=== PATIENT | female | born 1995 | race Caucasian/White ===

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

== ENCOUNTER 2018-03-31 15:26 | Emergency (ER) | payer BC ==
[2018-03-31 15:56] VITALS: BP 106/66
[2018-03-31] MEDS ORDERED: Ibuprofen TAB* 400 MG PO ONE (16:10)
--- NOTE | 2018-03-31 16:28 | UC ---
Abdominal Pain Female HPI - HPI Summary HPI Summary: 22-year-old female with a history of endometriosis presents with left pelvic discomfort that began last night. She states that her endometriosis is controlled with Mirena IUD. The discomfort is felt into the low back and also in the vaginal area but is not associated with any urinary difficulty, dysuria, frequency or hematuria. She has not had any vaginal discharge and is not sexually active for the last 2 years. She denies any GI upset, diarrhea or abdominal pain. That hurt somewhat worse with movement. She does have family history of endometriosis as well. - History of Current Complaint Chief Complaint: UCAbdominalPain Stated Complaint: HIP PAIN Time Seen by Provider: 03/31/18 16:00 Hx Obtained From: Patient Hx Last Menstrual Period: August 2017 IUD Pain Intensity: 6 Allergies/Adverse Reactions: Allergies Allergy/AdvReac Type Severity Reaction Status Date / Time Sulfa (Sulfonamide Allergy Unknown Verified 03/31/18 15:56 Antibiotics) Reaction Details PMH/Surg Hx/FS Hx/Imm Hx - Additional Past Medical History Additional PMH: Endometriosis - Surgical History Surgical History: Yes Surgery Procedure, Year, and Place: heel cord release - 2005. Pelvic lap - Family History Known Family History: Positive: Other - endometriosis Negative: Cardiac Disease - Social History Alcohol Use: Rare Substance Use Type: Marijuana Smoking Status (MU): Never Smoked Tobacco Review of Systems Constitutional: Negative Respiratory: Negative Cardiovascular: Negative Gastrointestinal: Other - L sided low abd/pelvic discomfort Genitourinary: Other - vaginal area pain without discharge All Other Systems Reviewed And Are Negative: Yes Physical Exam Triage Information Reviewed: Yes Appearance: Well-Appearing, No Pain Distress, Well-Nourished Vital Signs: Initial Vital Signs Temp 99.5 F 03/31/18 15:53 Pulse 77 03/31/18 15:53 Resp 18 03/31/18 15:53 BP 106/66 03/31/18 15:53 Pulse Ox 100 03/31/18 15:53 Vital Signs Reviewed: Yes Eye Exam: Normal ENT: Positive: Normal ENT inspection Neck: Positive: Supple, Nontender Respiratory: Positive: Chest non-tender, Lungs clear Cardiovascular: Positive: RRR Abdomen Description: Positive: Nontender, No Organomegaly, Soft, Other: - LLQ is nontender. Negative: Distended, Guarding Musculoskeletal Exam: Normal Musculoskeletal: Positive: Other: - no CVA tenderness or muscular tenderness in back Neurological Exam: Normal Psychological Exam: Normal Skin Exam: Normal Diagnostics - Laboratory Diagnostic Studies Completed/Ordered: UA: 3+ protein, NEG blood. Otherwise neg. Uring Preg: NEG Abd Pain Female Course/Dx - Course Course Of Treatment: There is concern for possible ovarian cyst versus pain associated with endometriosis. Ultrasound left at 4:00 and is not available. I 've discussed the options with patient to include going to the emergency department or coming back tomorrow for ultrasound. She wishes to return tomorrow. Pelvic exam was deferred given that the patient is not sexually active. Urinalysis shows no blood. Given ibuprofen here. No peritoneal signs. Follow-up urgent care first thing in the morning as [facility] does not offer ultrasound. - Differential Dx/Diagnosis Differential Diagnosis: Constipation, Ovarian Cyst, Pelvic Inflammatory Disease , Renal Colic, Urinary Tract Infection Provider Diagnoses: Left-sided pelvic pain. Probable left ovarian cyst. History of endometriosis Discharge - Sign-Out/Discharge Documenting (check all that apply): Patient Departure All imaging exams completed and their final reports reviewed: No Studies - Discharge Plan Condition: Improved Disposition: HOME Prescriptions: Naproxen [Naproxen 500 mg tab] 500 mg PO BID PRN #12 tablet.dr LANDEROS Reason: Pain Patient Education Materials: Ovarian Cyst (ED) Referrals: [facility] [Provider Group] Additional Instructions: Return to urgent care earlier in the day as ultrasound stops at 4:00. If you' re not seen before 3:30 PM he may not be able to have ultrasound. Emergency department is open 24 7 and does offer the services. Return to the ER or urgent care with fever, increased pain, vomiting, worse, new symptoms or other concerns as discussed. - Billing Disposition and Condition Condition: IMPROVED Disposition: Home - Attestation Statements Document Initiated by Van: Adriana
== END 2018-03-31 16:43 | disposition home or self-care (01) ==
LOC: UCEAST 15:26
DX: R10.2 Pelvic and perineal pain (principal); N80.9 Endometriosis, unspecified; Z97.5 Presence of (intrauterine) contraceptive device; Z32.02 Encounter for pregnancy test, result negative; Z88.2 Allergy status to sulfonamides
CPT/HCPCS: 81003; 84702; 99212; A9270-GY; G0463

== ENCOUNTER 2018-04-14 08:22 | Emergency (ER) | payer BC ==
[2018-04-14 08:33] VITALS: BP 102/61
--- NOTE | 2018-04-14 09:10 | UC ---
Abdominal Pain Female HPI - HPI Summary HPI Summary: SEVERAL WEEKS OF LEFT LOWER ABDOMINAL PAIN AND SHARP VAGINAL DISCOMFORT. HAS H/ O ENDOMETRIOSIS AND HAS IUD TO HELP WITH SX. WAS SEEN HERE A COUPLE OF WEEKS AGO FOR THIS SAME COMPLAINT AND WAS ADVISED TO HAVE AN ULTRASOUND DONE TO CHECK PLACEMENT OF HER IUD. SHE DOES HAVE SOME SLIGHT VAGINAL DISCHARGE BUT STATES THIS MAY BE HER NORMAL PHYSIOLOGIC DISCHARGE. NO ODOR, IRRITATION OR URINARY SYMPTOMS. NO FEVER, NAUSEA/VOMITING. NO SEXUAL ACTIVITY IN OVER 2 YEARS. PT NOT CONCERNED ABOUT STD. - History of Current Complaint Chief Complaint: UCAbdominalPain Stated Complaint: ABDOMINAL COMPLAINT Time Seen by Provider: 04/14/18 08:45 Hx Obtained From: Patient Hx Last Menstrual Period: IUD in place Onset/Duration: Gradual Onset, Lasting Weeks, Still Present Timing: Constant Severity Initially: Moderate Severity Currently: Moderate Pain Intensity: 4 Pain Scale Used: 0-10 Numeric Location: Diffuse Radiates: No Character: Cramping, Sharp Aggravating Factor(s): Nothing Alleviating Factor(s): Nothing Associated Signs and Symptoms: Negative: Fever, Back Pain, Urinary Symptoms, Nausea, Vomiting Allergies/Adverse Reactions: Allergies Allergy/AdvReac Type Severity Reaction Status Date / Time Sulfa (Sulfonamide Allergy Unknown Verified 04/14/18 08:33 Antibiotics) Reaction Details PMH/Surg Hx/FS Hx/Imm Hx - Additional Past Medical History Additional PMH: ADHD, ENDOMETRIOSIS Neurological History: Seizures - Surgical History Surgical History: Yes Surgery Procedure, Year, and Place: heel cord release - 2005. Pelvic lap. endometriosis surgery - Family History Known Family History: Positive: Hypertension, Other - endometriosis Negative: Cardiac Disease - Social History Alcohol Use: Occasionally Substance Use Type: Marijuana Substance Use Comment - Amount & Last Used: ocassional Smoking Status (MU): Never Smoked Tobacco Review of Systems Constitutional: Negative Respiratory: Negative Cardiovascular: Negative Gastrointestinal: Abdominal Pain Genitourinary: Dysuria All Other Systems Reviewed And Are Negative: Yes Physical Exam Triage Information Reviewed: Yes Appearance: Well-Appearing, No Pain Distress, Well-Nourished Vital Signs: Initial Vital Signs Temp 98 F 04/14/18 08:27 Pulse 92 04/14/18 08:27 Resp 18 04/14/18 08:27 BP 102/61 04/14/18 08:27 Pulse Ox 100 04/14/18 08:27 Laboratory Tests 04/14/18 11:02 POC Urine Color Light yellow POC Urine Clarity Clear POC Urine pH 6.0 POC Ur Specif [place] <= 1.005 L POC Urine Protein Negative POC Ur Glucose (UA) Negative POC Urine Ketones Negative POC Urine Blood Negative POC Urine Nitrite Negative POC Urine Bilirubin Negative POC Urine Urobilinogen 0.2 POC U Leukocyte Esteras Negative Vital Signs Reviewed: Yes Eyes: Positive: Conjunctiva Clear ENT: Positive: Hearing grossly normal Neck: Positive: Supple Respiratory Exam: Normal Cardiovascular Exam: Normal Abdomen Description: Positive: Soft, CVA Tenderness (R), CVA Tenderness (L), Other: - DIFFUSELY TENDER BUT WORSE IN LOWER ABD. NO REBOUND OR RIGIDITY. Negative: Distended, Guarding Bowel Sounds: Positive: Present Musculoskeletal: Positive: No Edema Neurological: Positive: Alert Psychological: Positive: Age Appropriate Behavior Skin: Negative: rashes Diagnostics - Radiology PELVIC/TRANSVAG US Radiology Interpretation Completed By: Radiologist Summary of Radiographic Findings: 1. 3.2 CM CYSTIC LESION OF THE LEFT OVARY. THE DIFFERENTIAL INCLUDES A HEMORRHAGIC CYST VERSUS ENDOMETRIOMA. RECOMMEND CONSIDERATION OF FOLLOW-UP EVALUATION IN 6 WEEKS-12 WEEKS TO DOCUMENT RESOLUTION. 2. AN IUD IS NOTED CENTRALLY WITHIN THE ENDOMETRIAL CAVITY TOWARDS THE FUNDUS. Abd Pain Female Course/Dx - Differential Dx/Diagnosis Provider Diagnoses: HEMORRHAGIC OVARIAN CYST/PELVIC PAIN Discharge - Sign-Out/Discharge Documenting (check all that apply): Patient Departure All imaging exams completed and their final reports reviewed: Yes - Discharge Plan Condition: Stable Disposition: HOME Patient Education Materials: Ovarian Cyst (ED), Pelvic Pain in Women (ED) Forms: *School Release, *Work Release Referrals: No Primary Care Phys,[facility] [Primary Care Provider] - Additional Instructions: ULTRASOUND TODAY SHOWS: 1. 3.2 CM CYSTIC LESION OF THE LEFT OVARY. THE DIFFERENTIAL INCLUDES A HEMORRHAGIC CYST VERSUS ENDOMETRIOMA. RECOMMEND CONSIDERATION OF FOLLOW-UP EVALUATION IN 6 WEEKS-12 WEEKS TO DOCUMENT RESOLUTION. 2. AN IUD IS NOTED CENTRALLY WITHIN THE ENDOMETRIAL CAVITY TOWARDS THE FUNDUS. FOLLOW-UP WITH YOUR CABLE STRETCHER AND TESTER INDICATED ABOVE. GO TO THE ED WITHOUT FAIL IF YOU DEVELOP WORSENING PAIN, FEVER, NAUSEA OR ANY OTHER CONCERNING SYMPTOMS. - Billing Disposition and Condition Condition: STABLE Disposition: Home
--- NOTE | 2018-04-14 10:25 | RAD ---
HISTORY: PELVIC/LLQ PAIN. IUD PLACEMENT, history of endometriosis COMPARISONS: None TECHNIQUE: Multiple transverse and longitudinal ultrasound images were obtained of the pelvis using grayscale, color Doppler, and spectral Doppler imaging using the transabdominal and endovaginal transducers. FINDINGS: UTERUS: The uterus measures 8.1 x 3.3 x 3.9 cm. The uterus is normal in shape, size, contour, and echotexture. ENDOMETRIUM: The endometrial stripe is smooth. The endometrium measures 0.4 cm in thickness. An IUD is noted centrally within the endometrial cavity towards the fundus. CUL-DE-SAC: There is no free fluid within the cul-de-sac. RIGHT OVARY: The right ovary measures 2.7 x 1.9 x 1.4 cm. Normal arterial and venous waveforms are identifiable within the ovary on spectral Doppler imaging. LEFT OVARY: The left ovary measures 4 x 3.8 x 3.5 cm. There is a heterogeneously hyperechoic cystic lesion of the left ovary measuring 3.1 x 3.2 x 3.1 cm in size without internal vascularity. Normal arterial and venous waveforms are identifiable within the ovary on spectral Doppler imaging. BLADDER: The visualized bladder is unremarkable. OTHER: None IMPRESSION: 1. 3.2 CM CYSTIC LESION OF THE LEFT OVARY. THE DIFFERENTIAL INCLUDES A HEMORRHAGIC CYST VERSUS ENDOMETRIOMA. RECOMMEND CONSIDERATION OF FOLLOW-UP EVALUATION IN 6 WEEKS-12 WEEKS TO DOCUMENT RESOLUTION. 2. AN IUD IS NOTED CENTRALLY WITHIN THE ENDOMETRIAL CAVITY TOWARDS THE FUNDUS.
== END 2018-04-14 11:05 | disposition home or self-care (01) ==
LOC: UCEAST 08:22
DX: N83.202 Unspecified ovarian cyst, left side (principal); R10.2 Pelvic and perineal pain; Z97.5 Presence of (intrauterine) contraceptive device; Z88.2 Allergy status to sulfonamides
CPT/HCPCS: 76856; 81003; 99211; G0463

== ENCOUNTER 2018-06-18 00:31 | Emergency (ER) | payer BC ==
--- NOTE | 2018-06-18 01:48 | ED ---
Headache - HPI Summary HPI Summary: This patient is a 22 year old F presenting to [facility] with a chief complaint of severe WILEY with dizziness since 15:30 yesterday. The patient rates the pain 5/10 in severity. Patient reports nausea, blurry vision, productive cough, left sided CP, difficulty eating, and SOB. Patient denies fever or diarrhea. The patient has had sudden breathing difficulties over the past month and was given an inhaler. She states that her car has an exhaust problem and she is concerned about CO poisoning. PMHX asthma. Vitals in the room: HR 75 bpm BP 116/50 - History Of Current Complaint Chief Complaint: EDGeneral Stated Complaint: CO1 EXPOSURE Time Seen by Provider: 06/18/18 01:39 Hx Obtained From: Patient Hx Last Menstrual Period: IUD in place Onset/Duration: Sudden Onset, Started days ago Timing: Constant Character: Sharp Associated Signs And Symptoms: Dizziness, Nausea, Visual Changes - Allergies/Home Medications Allergies/Adverse Reactions: Allergies Allergy/AdvReac Type Severity Reaction Status Date / Time Sulfa (Sulfonamide Allergy Unknown Verified 06/18/18 00:40 Antibiotics) Reaction Details PMH/Surg Hx/FS Hx/Imm Hx Respiratory History: Reports: Hx Asthma Sensory History: Denies: Hx Deafness - Surgical History Surgery Procedure, Year, and Place: heel cord release - 2005. Pelvic lap. endometriosis surgery Infectious Disease History: No Infectious Disease History: Denies: Traveled Outside the [place] in Last 30 Days - Family History Known Family History: Positive: Hypertension, Other - endometriosis Negative: Cardiac Disease - Social History Alcohol Use: Occasionally Substance Use Type: Reports: Marijuana Substance Use Comment - Amount & Last Used: ocassional Smoking Status (MU): Never Smoked Tobacco Review of Systems Negative: Fever Positive: Blurred Vision Positive: Chest Pain Positive: Shortness Of Breath, Cough Positive: Nausea. Negative: Diarrhea Positive: Headache All Other Systems Reviewed And Are Negative: Yes Physical Exam - Summary Physical Exam Summary: Appearance: Well-appearing, Well-nourished, lying in bed comfortably Skin: Warm, dry, no obvious rash Eyes: sclera anicteric, no conjunctival pallor ENT: mucous membranes moist, pharynx appears normal Neck: Supple, nontender Respiratory: Clear to auscultation, no signs of respiratory distress Cardiovascular: Normal S1, S2. No murmurs. Normal distal pulses in tibial and radial bilaterally. Abdomen: Soft, nontender, normal active bowel sounds present Musculoskeletal: Normal, Strength/ROM Intact Neurological: A&Ox3, awake and alert, mentation is normal, speech is fluent and appropriate Psychiatric: affect is normal, does not appear anxious or depressed Triage Information Reviewed: Yes Vital Signs On Initial Exam: Initial Vitals Temp Pulse Resp BP Pulse Ox 98.5 F 84 20 118/75 100 06/18/18 00:35 06/18/18 00:35 06/18/18 00:35 06/18/18 00:35 06/18/18 00:35 Vital Signs Reviewed: Yes Diagnostics - Vital Signs Vital Signs Temp Pulse Resp BP Pulse Ox 06/18/18 00:35 98.5 F 84 20 118/75 100 - Laboratory Lab Statement: Any lab studies that have been ordered have been reviewed, and results considered in the medical decision making process. Headache Course/Dx - Course Course Of Treatment: This patient is a 22 year old F presenting to [facility] with a chief complaint of severe WILEY with dizziness since 15:30 yesterday. The patient rates the pain 5/10 in severity. Patient reports nausea, blurry vision, productive cough, left sided CP, difficulty eating, and SOB. Patient denies fever or diarrhea. In the ED course the patient was given Ondansetron. Patient will be discharged with prescription for Ondansetron and follow up from the [facility]. The patient is agreeable with this plan. - Diagnoses Differential Diagnosis/HQI/PQRI: Viral Syndrome Provider Diagnoses: Viral syndrome Discharge - Sign-Out/Discharge Documenting (check all that apply): Patient Departure - discharge - Discharge Plan Condition: Good Disposition: HOME Prescriptions: Ondansetron ODT TAB* [Zofran 4 MG Odt TAB*] 8 mg PO Q6H PRN #10 tab.odt PRN Reason: Nausea Patient Education Materials: Viral Syndrome (ED) Referrals: [facility] [Outside] - 1 Week (if not improving) - Billing Disposition and Condition Condition: GOOD Disposition: Home - Attestation Statements Document Initiated by Scribe: Yes Documenting Scribe: Dennys Sanders Provider For Whom Scribe is Documenting (Include Credential): Dionicio Overton MD Scribe Attestation: Dennys Dai, ediibed for Dionicio Overton MD on 06/18/18 at 0650. Scribjabari Documentation Reviewed: Yes Provider Attestation: The documentation as recorded by the scribe, Dennys Sanders accurately reflects the service I personally performed and the decisions made by me, Dionicio Overton MD Status of Van Document: Viewed
[2018-06-18] MEDS ORDERED: Ondansetron ODT TAB* 4 MG SL ONE (01:52)
[2018-06-18 02:29] VITALS: BP 125/74
== END 2018-06-18 02:15 | disposition home or self-care (01) ==
LOC: ED 00:31
DX: B34.9 Viral infection, unspecified (principal); R42 Dizziness and giddiness; R11.0 Nausea; Z88.2 Allergy status to sulfonamides; H53.8 Other visual disturbances; R06.02 Shortness of breath; R07.9 Chest pain, unspecified
CPT/HCPCS: 99282; A9270-GY

== ENCOUNTER 2019-03-03 09:41 | Emergency (ER) | payer BC ==
--- NOTE | 2019-03-03 10:51 | ED ---
GI/ HPI - HPI Summary HPI Summary: Patient is a 23 y/o F w/ Hx of UTI who presents to [facility] with complaints of right flank pain, lower abdominal pain, dysuria, and increased urgency of urination. She additionally notes that she had a low-grade fever yesterday. No vaginal bleeding or discharge is reported. Patient reports that she had a UTI about a month ago and states that present Sx are similar to those that she had during her UTI episode. Patient went to [facility] and was sent to [facility] after urine returned clean. Patient notes that she has an IUD in place. PMHx of endometriosis reported, for which she had surgery. Patient notes marijuana usage , occasional alcohol usage, patient is not a current tobacco smoker. FMHx of type 1 diabetes, grandfather, noted. On triage, pain is rated 4/10, nothing is noted to aggravate/alleviate Sx. Home medications and allergies are reviewed. - History of Current Complaint Chief Complaint: EDUrogenitalProblems Time Seen by Provider: 03/03/19 10:36 Stated Complaint: ABD PAIN PER PT Hx Obtained From: Patient Hx Last Menstrual Period: IUD in place Onset/Duration: Still Present Timing: Constant Current Severity: Moderate Pain Intensity: 4 Location of Pain: Flank - right, Other - lower abdomen Associated Signs and Symptoms: Positive: Fever, Dysuria, Flank Pain - right, Abdominal Pain - lower, Other: - increased urgency of urination, Additional Signs & Symptoms: Negative: Vaginal Bleeding, Vaginal Discharge Aggravating Factor(s): Nothing Alleviating Factor(s): Nothing - Allergy/Home Medications Allergies/Adverse Reactions: Allergies Allergy/AdvReac Type Severity Reaction Status Date / Time Sulfa (Sulfonamide AdvReac Unknown Verified 03/03/19 09:43 Antibiotics) Reaction Details PMH/Surg Hx/FS Hx/Imm Hx Respiratory History: Reports: Hx Asthma History: Reports: Other Problems/Disorders - endometriosis Sensory History: Denies: Hx Deafness - Surgical History Surgery Procedure, Year, and Place: heel cord release - 2005. Pelvic lap. endometriosis surgery Infectious Disease History: No Infectious Disease History: Denies: Traveled Outside the [place] in Last 30 Days - Family History Known Family History: Positive: Hypertension, Diabetes, Other - endometriosis Negative: Cardiac Disease - Social History Alcohol Use: Occasionally Substance Use Type: Reports: Marijuana Substance Use Comment - Amount & Last Used: ocassional Smoking Status (MU): Never Smoked Tobacco Review of Systems Positive: Fever Positive: Abdominal Pain - lower Genitourinary: Other - negative - vaginal bleeding Positive: dysuria, flank pain - right, urgency - increased urgency of urination . Negative: discharge - vaginal All Other Systems Reviewed And Are Negative: Yes Physical Exam - Summary Physical Exam Summary: VITAL SIGNS: Reviewed. GENERAL: Patient is a well-developed and nourished female who is lying comfortable in the stretcher. Patient is not in any acute respiratory distress. Right CVA tenderness is noted. HEAD AND FACE: Normocephalic and atraumatic. EYES: PERRLA, EOMI x 2, No injected conjunctiva. EARS: Hearing grossly intact. Ear canals and tympanic membranes are WNL. MOUTH: Oropharynx within normal limits. NECK: Supple, trachea is midline, no adenopathy, no JVD. CHEST: Symmetric, no tenderness at palpation. LUNGS: Clear to auscultation bilaterally. No wheezing or crackles. CVS: RRR, S1 and S2 present, no murmurs or gallops appreciated. ABDOMEN: Soft, non-tender. No signs of distention. Positive bowel sounds. No rebound, no guarding, and no masses palpated. No abdominal bruit or pulsations. EXTREMITIES: FROM in all major joints, no edema, no cyanosis or clubbing. NEURO: Alert and oriented x 3. No acute neurological deficits. Speech is normal. SKIN: Dry and warm. Triage Information Reviewed: Yes Vital Signs On Initial Exam: Initial Vitals Temp Pulse Resp BP Pulse Ox 98.1 F 88 16 133/67 95 03/03/19 09:42 03/03/19 09:42 03/03/19 09:42 03/03/19 09:42 03/03/19 09:42 Vital Signs Reviewed: Yes Diagnostics - Vital Signs Vital Signs Temp Pulse Resp BP Pulse Ox 03/03/19 09:42 98.1 F 88 16 133/67 95 - Laboratory Result Diagrams: 03/03/19 10:43 03/03/19 10:43 Lab Statement: Any lab studies that have been ordered have been reviewed, and results considered in the medical decision making process. - CT CT ABD/PEL CT Interpretation Completed By: Radiologist Summary of CT Findings: IMPRESSION: No evidence of obstructive uropathy. THIS REPORT WAS REVIEWED BY DR. MARTINEZ. GIORGIO Course/Dx - Course Assessment/Plan: Patient is a 23 y/o F w/ Hx of UTI who presents to [facility] with complaints of right flank pain, lower abdominal pain, dysuria, and increased urgency of urination. She additionally notes that she had a low-grade fever yesterday. No vaginal bleeding or discharge is reported. Patient reports that she had a UTI about a month ago and states that present Sx are similar to those that she had during her UTI episode. Patient went to [facility] and was sent to [facility] after urine returned clean. Patient notes that she has an IUD in place. PMHx of endometriosis reported, for which she had surgery. Blood work without any significant abnormality except for WBCs of 2.4. Urinalysis shows 1+ blood, 1+ red blood cells and positive for squamous epithelial cells. Abdominal pelvic CT impression: No acute pathology. Therefore, I did not find the etiology of urinary frequency and dysuria. We will send the urine for cultures. At this point I would give a prescription for Pyridium to treat the discomfort. The patient will follow-up with the primary care physician. She was recommended to return to the emergency department if the symptoms worsen. She understands and agrees. - Diagnoses Provider Diagnoses: Dysuria Discharge ED - Sign-Out/Discharge Documenting (check all that apply): Patient Departure - discharge Patient Received Moderate/Deep Sedation with Procedure: No - Discharge Plan Condition: Stable Disposition: HOME Prescriptions: Phenazopyridine TAB* [Pyridium 100 mg TAB*] 100 mg PO TID #9 tab Patient Education Materials: Dysuria (ED) Referrals: [facility] - [facility] [Primary Care Provider] - 3 Days Additional Instructions: PLEASE RETURN TO THE EMERGENCY DEPARTMENT FOR ANY NEW OR WORSENING SYMPTOMS. PLEASE FOLLOW UP WITH YOUR PRIMARY CARE PHYSICIAN WITHIN THREE DAYS. - Billing Disposition and Condition Condition: STABLE Disposition: Home - Attestation Statements Document Initiated by Van: Yes Documenting Scribe: DAGO JONES Provider For Whom Van is Documenting (Include Credential): FAUSTO MARTINEZ MD Scribe Attestation: DAGO Dai scribed for FAUSTO MARTINEZ MD on 03/04/19 at 0843. Scribe Documentation Reviewed: Yes Provider Attestation: The documentation as recorded by the DAGO tom accurately reflects the service I personally performed and the decisions made by me, FAUSTO MARTINEZ MD Status of Van Document: Viewed
[2019-03-03 10:57] LABS: ABS Lymphocytes 0.7 10^3/ul (1.0-4.8); ABS Monocytes 0.4 10^3/ul (0-0.8); ABS Neutrophils 1.3 10^3/ul (1.5-7.7); Hematocrit 41 % (35-47); Hemoglobin 14.1 g/dL (12.0-16.0); Lymphocyte % 27.1 %; Mean Corpuscular HGB Conc 35 g/dL (31-36); Mean Corpuscular Hemoglobin 31 pg (27-31); Mean Corpuscular Volume 90 fL (80-97); Mean Platelet Volume 7.3 fL (7.4-10.4); Nucleated Red Blood Cells % 0.1; Platelet Count 211 10^3/uL (150-450); Red Blood Count 4.52 10^6 /uL (3.70-4.87); Red Cell Distribution Width 13 % (10-15); White Blood Count 2.4 10^3/uL (3.5-10.8)
[2019-03-03 11:10] LABS: ALT 14 U/L (7-52); Albumin 4.5 g/dL (3.2-5.2); Albumin/Globulin Ratio 1.6 (1-3); Alkaline Phosphatase 73 U/L (34-104); Blood Urea Nitrogen 17 mg/dL (6-24); CO2 Carbon Dioxide 25 mmol/L (22-32); Calcium 9.2 mg/dL (8.6-10.3); Chloride 108 mmol/L (101-111); EGFR African American 132.2 (>60); EGFR Non-African American 109.2 (>60); Globulin 2.8 g/dL (2-4); Glucose 92 mg/dL (70-100); Sodium 138 mmol/L (135-145); Total Protein 7.3 g/dL (6.4-8.9)
[2019-03-03 11:24] LABS: Urine Appearance Clear; Urine Bacteria Absent (Absent); Urine Bilirubin Negative (Negative); Urine Blood 1+ (Negative); Urine Color Yellow; Urine Glucose Negative (Negative); Urine Ketones Negative (Negative); Urine Nitrite Negative (Negative); Urine Protein Negative (Negative); Urine Red Blood Cell 1+(3-5/hpf) (Absent); Urine Squamous Epithelial Cell Present (Absent); Urine Urobilinogen Negative (Negative); Urine White Blood Cell Trace(0-5/hpf) (Absent)
[2019-03-03 12:04] LABS: Anion Gap 5 mmol/L (2-11); Potassium 4.4 mmol/L (3.5-5.0)
[2019-03-03 12:05] LABS: HCG Pregnancy < 0.60 mIU/mL
[2019-03-03 12:11] LABS: AST 19 U/L (13-39)
[2019-03-03 13:21] VITALS: BP 112/68
== END 2019-03-03 13:16 | disposition home or self-care (01) ==
LOC: ED 09:41
DX: R30.0 Dysuria (principal); J45.909 Unspecified asthma, uncomplicated; Z79.899 Other long term (current) drug therapy; Z88.2 Allergy status to sulfonamides
CPT/HCPCS: 36415; 74176; 80053; 81003; 81015; 84702; 85025; 86140; 87086; 99282

== ENCOUNTER 2019-03-16 22:03 | Emergency (ER) | payer BC ==
[2019-03-16 22:16] VITALS: BP 119/70
== END 2019-03-16 23:18 | disposition left against medical advice (07) ==
LOC: ED 22:03
DX: Z53.21 Procedure and treatment not carried out due to patient leaving prior to being seen by health care provider (principal)
CPT/HCPCS: 99282

== ENCOUNTER 2019-03-17 17:05 | Emergency (ER) | payer BC ==
--- NOTE | 2019-03-17 17:28 | ED ---
Throat Pain/Nasal Congestion - HPI Summary HPI Summary: 23 year old F brought in by EMS to [facility] from [facility] accompanied by mother complains of sore throat since last week. Patient states she was seen at [facility] on Thursday03/13/19 where she had strep test done which was negative for strep and bloodwork done which was positive for mono. Patient was diagnosed with mono, and discharged with prescription for prednisone 10 mg and given lidocaine. Patient states she has been taking prednisone 10 mg since Thursday03/13/19, and has only taken one dose of prednisone today. Patient states she has not taken any antibiotics. Patient states she has additionally been taking Tylenol, last taken at 13:00 today 03/17/19, and Aleve for fever. Patient reports headache, left sided abdominal discomfort, and shortness of breath. She denies vomiting, urinary symptoms. The patient rates the pain 7/10 in severity. Symptoms aggravated by eating, drinking, swallowing. Symptoms alleviated by prednisone 10 mg, lidocaine, Tylenol, and Aleve. Mother states that patient came to the ED last night and left without being seen. Patient states she has not received the influenza vaccination yet. Patient states that 2 years ago, she had similar symptoms but tested negative for mono. LNMP was "couple weeks ago." Patient states she has an IUD. Vital signs while in room: HR 46 bpm, BP 134/87, O2 sat 99% Home Medications Medication Instructions Recorded Confirmed Type Methylphenidate HCl [Concerta] 1 tab PO DAILY 07/12/16 03/17/19 History Methylphenidate HCl [Ritalin] 1 tab PO DAILY 07/12/16 03/17/19 History predniSONE TAB* [Deltasone 10 MG 10 mg PO DAILY 03/17/19 03/17/19 History TAB*] - History of Current Complaint Chief Complaint: EDThroatPain Time Seen by Provider: 03/17/19 17:26 Hx Obtained From: Patient, Family/[employer] - mother, EMS Onset/Duration: Gradual Onset, Lasting Weeks - 1, Still Present Severity: Severe - 12/22 Associated Signs And Symptoms: Positive: Dysphagia Cough: None Related History: Other (Noted In Comments) - recent dx of mono - Allergies/Home Medications Allergies/Adverse Reactions: Allergies Allergy/AdvReac Type Severity Reaction Status Date / Time Sulfa (Sulfonamide AdvReac Unknown Verified 03/17/19 17:15 Antibiotics) Reaction Details Home Medications: Home Medications predniSONE TAB* [Deltasone 10 MG TAB*] 10 mg PO DAILY 03/17/19 [History Confirmed 03/17/19] PMH/Surg Hx/FS Hx/Imm Hx Previously Healthy: Yes Respiratory History: Reports: Hx Asthma History: Reports: Other Problems/Disorders - endometriosis Sensory History: Reports: Hx Contacts or Glasses Opthamlomology History: Reports: Hx Contacts or Glasses - Surgical History Surgical History: Yes Surgery Procedure, Year, and Place: heel cord release - 2005. Pelvic lap. endometriosis surgery Infectious Disease History: No Infectious Disease History: Denies: Traveled Outside the [place] in Last 30 Days - Family History Known Family History: Positive: Hypertension, Diabetes, Other - endometriosis Negative: Cardiac Disease - Social History Occupation: Student Lives: Dormitory/Roommates Alcohol Use: Occasionally Hx Substance Use: Yes Substance Use Type: Reports: Marijuana Substance Use Comment - Amount & Last Used: ocassional Hx Tobacco Use: No Smoking Status (MU): Never Smoked Tobacco Review of Systems Positive: Fever Positive: Sore Throat Cardiovascular: Negative Positive: Shortness Of Breath Positive: Other - left sided abdominal discomfort. Negative: Vomiting Positive: no symptoms reported Musculoskeletal: Negative Skin: Negative Positive: Headache Psychological: Normal All Other Systems Reviewed And Are Negative: Yes Physical Exam - Summary Physical Exam Summary: Appearance: Ill-appearing, severe pain distress due to throat pain, well- nourished, expectorating her secretions but able to swallow her own secretions, no "hot potato" voice Skin: Warm, color reflects adequate perfusion, dry, no rash Head: Normal Head/Face inspection, atraumatic Eyes: Conjunctiva clear ENT: Bilateral tonsils enlarged with right greater than left, exudate bilaterally right greater than left, no "kissing tonsils," uvula midline, right tonsil not swollen to uvula Neck: Supple, bilateral anterior cervical nodes, no JVD Respiratory: Lungs clear, normal breath sounds, no respiratory distress Cardio: RRR, No murmur, pulses normal, brisk capillary refill Abdomen: Soft, diffusely tender, no spleen tip palpable, no guarding, no rebound Bowel sounds: Present Musculoskeletal: Strength Intact/ROM intact, no calf tenderness, no edema. Psychological: Normal Neuro: Alert, muscle tone normal, no focal deficit Triage Information Reviewed: Yes Vital Signs On Initial Exam: Initial Vitals Temp Pulse Resp BP Pulse Ox 98.8 F 46 16 134/87 99 03/17/19 17:10 03/17/19 17:10 03/17/19 17:10 03/17/19 17:10 03/17/19 17:10 Vital Signs Reviewed: Yes Procedures - Sedation Patient Received Moderate/Deep Sedation with Procedure: No Diagnostics - Vital Signs Vital Signs Temp Pulse Resp BP Pulse Ox 03/17/19 17:10 98.8 F 46 16 134/87 99 - Laboratory Result Diagrams: 03/17/19 19:04 03/17/19 19:04 Lab Statement: Any lab studies that have been ordered have been reviewed, and results considered in the medical decision making process. Re-Evaluation - Re-Evaluation First Eval Re-Evaluation Time: 20:26 Change: Unchanged Comment: nurse states IV was placed and 30 mg Toradol given. patient complained of pain so IV was pulled per nurse. unable to re-establish IV access per nurse. patient states she will drink. will try to find liquid medicine for her dose of clindamycin tonight Second Eval Re-Evaluation Time: 21:25 Change: Improved Comment: sitting up. pain is 2/10. drinking. able to swallow. mother and patient are agreeable to discharge EENT Course/Dx - Course Course Of Treatment: 23 year old F brought in by EMS to [facility] from [facility] accompanied by mother complains of sore throat, headache, left-sided abdominal discomfort, and shortness of breath since last week. Patient was dx mono on Thursday03/13/19 at [facility]. Upon exam, the patient is in severe pain distress due to throat pain. She is expectorating her secretions but able to swallow her own secretions. No "hot potato" voice. Bilateral anterior cervical nodes. No rash. Bilateral tonsils enlarged with right greater than left, exudate bilaterally right greater than left, no "kissing tonsils," uvula midline, right tonsil not swollen to uvula. Abdomen is diffusely tender, no spleen tip palpable. Patient medications reviewed this visit. Nurses notes reviewed. Allergies noted. Bloodwork results with no significant abnormalities except for WBC 12.7, MPV 6.8, absolute monos 1.5, INR 1.18, creatinine 0.46, BUN /creatinine 28.3. HCG is neg. Blood cultures sent. Rapid strep test negative for strep. Monoscreen positive for mono. In the ED course, the patient was given normal saline fluids 1 L IV, but then IV infiltrated so no further fluids given IV. Pt did receive Toradol 30 mg IV before the IV infiltrated, with good relief. Pt was able to drink po. The patient was given clindamycin 600 mg PO. Patient will be discharged home with prescription for clindamycin 600 mg PO TID for 10 days and follow up from [facility] and Dr. Cochran, ENT. Patient was informed to stop taking her prednisone and to to take medrol dose omari instead. She was advised to take acetaminophen two tabs every four hours. Patient was instructed to return to Emergency Department for new or worsening symptoms. Patient understands and is agreeable to this plan - Differential Diagnoses Differential Diagnoses: Epiglottitis, Influenza, Laryngitis, Pharyngitis, Tonsilitis, Other - peritonsillar abscess, mononucleosis - Diagnoses Provider Diagnoses: Tonsillitis, Mononucleosis Discharge ED - Sign-Out/Discharge Documenting (check all that apply): Patient Departure - Discharge - Discharge Plan Condition: Stable Disposition: HOME Prescriptions: Clindamycin Cap(NF) [Clindamycin Cap 300 mg Cap(NF)] 600 mg PO TID #60 cap methylPREDNISolone [Medrol Dosepak 4 MG*] 0 mg PO .SEE OMARI INSTRUCTION #1 omari Patient Education Materials: Mononucleosis (ED), Tonsillitis (ED) Referrals: Fito Cochran MD [Medical Doctor] - 1 Day [facility] - [facility] OLIVER [Primary Care Provider] - Additional Instructions: You were given ketorolac 30mg in your IV which helped your pain. We were not able to give you IV fluids or IV antibiotics, but you were able to drink and swallow the antibiotic. Your tonsils are enlarged with the right tonsil larger than the left so there is concern for a peritonsillar abscess developing. You will need close follow up with the ENT doctors for this. Please call their office in the morning. Take your clindamycin antibiotic 2 capsules 3 times a day for 10 days as directed. We gave your first dose in the [facility] at 9:15pm. Dr. Vega wants you to start a medrol dose omari (steroids) and stop any prednisone in your prescription that you have left. You will need to finish the medrol dose omari as directed. Your monospot test is positive. The differentiation of the antibodies result will not come back tonight, but you may have [facility] check that result. The ER does not typically call those results because they are not a stat result , that needs action or change in treatment from the ER. We also gave you acetaminophen 650mg (the adult dose liquid) at 9:15pm. You may take acetaminophen two 500mg tabs every four hours while you are awake to a maximum of 4 grams/24 hours. You may also take ibuprofen 800mg (4 200mg ibuprofen tabs) four times a day, or you may take 2 Aleve in the morning and 2 Aleve at night (total 4 Aleve per day) . And you may alternate the medications or take them together for your pain. Please return to the ER if you have any new or worsening symptoms. - Billing Disposition and Condition Condition: STABLE Disposition: Home - Attestation Statements Document Initiated by Van: Yes Documenting Scribe: Regina Cruz Provider For Whom Van is Documenting (Include Credential): Kasandra Vega MD Scribe Attestation: Regina Dai, scribed for Kasandra Vega MD on 04/10/19 at 2010. Scribe Documentation Reviewed: Yes Provider Attestation: The documentation as recorded by the Regina tom accurately reflects the service I personally performed and the decisions made by , Kasandra Vega MD Status of Scribe Document: Viewed
[2019-03-17] MEDS ORDERED: NS 0.9% 1000 ML** 2,000 ML IV ONE (17:57)
[2019-03-17] MEDS ORDERED: Ketorolac INJ* 30 MG/ML 1 ML VIAL IV ONE (18:09)
[2019-03-17 18:32] LABS: Rapid Strep Molecular Negative (Negative)
[2019-03-17 19:16] LABS: ABS Lymphocytes 3.6 10^3/ul (1.0-4.8); ABS Monocytes 1.5 10^3/ul (0-0.8); ABS Neutrophils 7.5 10^3/ul (1.5-7.7); Hematocrit 37 % (35-47); Hemoglobin 12.7 g/dL (12.0-16.0); Lymphocyte % 28.3 %; Mean Corpuscular HGB Conc 35 g/dL (31-36); Mean Corpuscular Hemoglobin 30 pg (27-31); Mean Corpuscular Volume 87 fL (80-97); Mean Platelet Volume 6.8 fL (7.4-10.4); Platelet Count 364 10^3/uL (150-450); Red Blood Count 4.22 10^6 /uL (3.70-4.87); Red Cell Distribution Width 12 % (10-15); White Blood Count 12.7 10^3/uL (3.5-10.8)
[2019-03-17 19:25] LABS: INR 1.18 (0.82-1.09)
[2019-03-17 19:37] LABS: ALT 20 U/L (7-52); AST 13 U/L (13-39); Albumin 3.9 g/dL (3.2-5.2); Albumin/Globulin Ratio 1.3 (1-3); Alkaline Phosphatase 70 U/L (34-104); Anion Gap 7 mmol/L (2-11); BUN/Creatinine Ratio 28.3 (8-20); Blood Urea Nitrogen 13 mg/dL (6-24); CO2 Carbon Dioxide 26 mmol/L (22-32); Calcium 8.9 mg/dL (8.6-10.3); Chloride 104 mmol/L (101-111); EGFR African American 207.5 (>60); EGFR Non-African American 171.5 (>60); Globulin 2.9 g/dL (2-4); Glucose 95 mg/dL (70-100); Potassium 3.8 mmol/L (3.5-5.0); Sodium 137 mmol/L (135-145); Total Protein 6.8 g/dL (6.4-8.9)
[2019-03-17 19:43] LABS: HCG Pregnancy < 0.60 mIU/mL
[2019-03-17] MEDS ORDERED: Clindamycin 600 MG IVPREMIX(* 600 MG/50 ML SDV IV ONE (19:58)
[2019-03-17] MEDS ORDERED: Clindamycin Oral SOLUTION* 75 MG/5 ML ORAL.SOLN PO ONE (20:28)
[2019-03-17] MEDS ORDERED: Acetaminophen ADULT LIQ* 650 MG/20.3 ML UDC PO ONE (21:12)
[2019-03-17 22:17] VITALS: BP 127/74
== END 2019-03-17 22:15 | disposition home or self-care (01) ==
LOC: ED 17:05
DX: R51 Headache (principal); J03.90 Acute tonsillitis, unspecified; B27.90 Infectious mononucleosis, unspecified without complication; J45.909 Unspecified asthma, uncomplicated; R06.02 Shortness of breath; Z79.899 Other long term (current) drug therapy
CPT/HCPCS: 36415; 80053; 83605; 84702; 85025; 85610; 86308; 87040; 87651; 99283; A9270-GY; J1885